=== PATIENT | female | born 1960 | race Caucasian/White ===

== ENCOUNTER 2020-08-19 20:51 | Inpatient (IN) | payer OTHER ==
[~2020-08-19] VITALS: Ht 162.6 cm; Wt 116.0 kg
[~2020-08-19 20:51] MED LIST: AUGMENTIN 875-1 EACH PO; AZITHROMYCIN250 MG PO; BACTRIM DS TAB1 EACH PO; BUMEX1 MG PO; CEFDINIR300 MG PO; CEFTRIAXONE1 GM IV; CRESTOR5 MG PO; CYMBALTA 30MG C30 MG PO; DIFLUCAN150 MG PO; DULERA 200 MCG8.8 GM INH; DUONEB 2.5-0.5M1 AMP INH; ELAVIL25 MG PO; HYDRALAZINE25 MG PO; KEFLEX250 MG PO; KEFLEX500 MG PO; METOLAZONE 5MG T5 MG PO; MOBIC7.5 MG PO; MUCINEX 600MG600 MG PO; NEURONTIN300 MG PO; NORCO 7.5-3251 EACH PO; NYSTATIN 30GM C30 GM TOP; TOPROL XL 50 MG50 MG PO; TRAMADOL HCL50 MG PO; ZOFRAN4 M1 PO
[2020-08-19 21:25] LABS: BASOPHIL 0.2 % (0-2); EOSINOPHIL 1.1 % (0-5); HGB 10.6 g/dl (12.5-16.0); MCH 29.1 pg (25.0-31.0); MCHC 29.4 g/dL (32.0-36.0); MCV 98.9 fL (78.0-100.0); MONOCYTE 5.1 % (0-12); MPV 8.9 fL (6.0-9.5); NEUTROPHIL 87.2 % (41-80); NRBC 0; PLT 347 K/uL (150-400); RBC 3.64 M/uL (4.20-5.40); RDW 13.4 % (11.5-14.0); WBC 18.1 K/uL (4.0-10.5)
[2020-08-19 21:56] LABS: PRO-BNP 388 pg/mL (<125)
[2020-08-19 22:02] LABS: ALBUMIN 3.6 g/dL (3.4-5.0); BILIRUBIN - TOTAL 0.6 mg/dL (0.2-1.0); C-REACTIVE PROTEIN 4.7 mg/dL (<=0.90); CREATININE 0.53 mg/dL (0.51-0.95); GLOBULIN (CALCULATION) 4.7 g/dL; POTASSIUM 4.3 mmol/L (3.5-5.1); TOTAL PROTEIN 8.3 g/dL (6.4-8.2)
[2020-08-19 22:11] LABS: BILIRUBIN NEGATIVE (NEGATIVE); BLOOD NEGATIVE Ery/uL (NEGATIVE); CLARITY CLEAR (CLEAR); COLOR YELLOW (YELLOW); GLUCOSE (U) NORMAL (NORMAL); LEUKOCYTES NEGATIVE Leu/uL (NEGATIVE); NITRITE NEGATIVE (NEGATIVE); PROTEIN NEGATIVE (NEGATIVE); UROBILINOGEN 0.2 mg/dL (0.2-1.0)
[2020-08-20] MEDS ORDERED: SINGULAIR10 MG PO (03:56)
[2020-08-20] MEDS ORDERED: LASIX40 MG PO (03:57)
[2020-08-20] MEDS ORDERED: K-DUR20 MEQ PO (03:59)
[2020-08-20] MEDS ORDERED: NORCO 5-325 TA1 EACH PO (04:01)
[2020-08-20] MEDS ORDERED: ALDACTONE25 MG PO (04:02)
--- NOTE | 2020-08-20 10:24 | NUR ---
REPORTS SHE IS ASSIST WITH CARE SHE HAS HOME 02 AND A WALKER AT HOME. LIVES WITH SPOUSE; PLEASE ADVISE OF DISCHARGE NEEDS;
--- NOTE | 2020-08-20 17:49 | NUR ---
08/20/20 Ms. Jacobo has requested a rw and 3in1. She has 02 at 2 L, s. chair and wc. Ms. Jacobo is current with [facility] and wishes to continu with there services. A referral was made to [facility] via [facility].
[2020-08-20] MEDS ORDERED: CLOBETASOL 0.0560 GM TOP (20:00)
[2020-08-20] MEDS ORDERED: MOBIC7.5 MG PO (20:00)
[2020-08-20] MEDS ORDERED: DOXYCYCLINE MO100 M1 PO (20:01)
[2020-08-20] MEDS ORDERED: 24HOUR ALLERGY10 MG PO (20:07)
[2020-08-20] MEDS ORDERED: MIRAPEX0.25 MG PO (20:08)
[2020-08-20] MEDS ORDERED: PROAIR HFA8.5 GM INH (20:09)
[2020-08-20] MEDS ORDERED: IMITREX50 MG PO (20:09)
[2020-08-21 03:56] LABS: BASOPHIL 0.1 % (0-2); EOSINOPHIL 0 % (0-5); HCT 33.4 % (37.0-47.0); HGB 9.8 g/dl (12.5-16.0); LYMPHOCYTE 7.5 % (15-48); MCH 29.2 pg (25.0-31.0); MCHC 29.3 g/dL (32.0-36.0); MCV 99.4 fL (78.0-100.0); MONOCYTE 3.2 % (0-12); MPV 9.5 fL (6.0-9.5); NEUTROPHIL 88.6 % (41-80); NRBC 0; PLT 324 K/uL (150-400); RBC 3.36 M/uL (4.20-5.40); RDW 13.7 % (11.5-14.0); WBC 10.7 K/uL (4.0-10.5)
[2020-08-21 07:33] LABS: ALBUMIN 3.1 g/dL (3.4-5.0); BILIRUBIN - TOTAL 0.5 mg/dL (0.2-1.0); BUN/CREAT RATIO (CALC) 33.9 RATIO; CREATININE 0.62 mg/dL (0.51-0.95); GLOBULIN (CALCULATION) 4.4 g/dL; POTASSIUM 4.6 mmol/L (3.5-5.1); TOTAL PROTEIN 7.5 g/dL (6.4-8.2)
[2020-08-22] MEDS ORDERED: AZITHROMYCIN250 MG PO (09:13)
[2020-08-22] MEDS ORDERED: DUONEB 2.5-0.5M1 AMP NEB (09:13)
[2020-08-22] MEDS ORDERED: PREDNISONE 20MG20 MG PO (09:13)
[2020-08-22] MEDS ORDERED: ADVAIR HFA 230-28 GM INH (09:52)
[2020-08-22] MEDS ORDERED: SPIRIVA RESPIMAT4 G1 INH (09:53)
== END 2020-08-22 11:20 | disposition home or self-care (01) | DRG 291 ==
LOC: FER 20:51 → FTCU 08-20 01:47
PROVIDERS: Emergency Medicine Emergency Medical Services; Nurse Practitioner; ADMIT Internal Medicine
DX: I11.0 Hypertensive heart disease with heart failure (principal); J96.01 Acute respiratory failure with hypoxia; J44.1 Chronic obstructive pulmonary disease with (acute) exacerbation; L97.819 Non-pressure chronic ulcer of other part of right lower leg with unspecified severity; I50.33 Acute on chronic diastolic (congestive) heart failure; Z20.822 Contact with and (suspected) exposure to COVID-19; I83.018 Varicose veins of right lower extremity with ulcer other part of lower leg; I83.028 Varicose veins of left lower extremity with ulcer other part of lower leg; E66.01 Morbid (severe) obesity due to excess calories; G89.29 Other chronic pain; G47.33 Obstructive sleep apnea (adult) (pediatric); Z99.81 Dependence on supplemental oxygen; Z87.891 Personal history of nicotine dependence; Z79.899 Other long term (current) drug therapy
CPT/HCPCS: 36415; 71045; 71275; 80053; 81003; 82728; 83605; 83615; 83880; 84145; 84484; 85025; 85379; 86140; 87040; 87076; 87088; 87186; 93005; 94640; 94664; 96365; 96375; 97116; 97163; 97530-GP; J1650; J1940; J2270; J2405; J2543; J2930; J3370; J7050; Q9967; U0002

== ENCOUNTER 2020-11-15 13:53 | Inpatient (IN) | payer OTHER ==
[~2020-11-15 13:53] MED LIST changes: +24HOUR ALLERGY10 MG PO; +ADVAIR HFA 230-28 GM INH; +ALDACTONE25 MG PO; +CLOBETASOL 0.0560 GM TOP; +DOXYCYCLINE MO100 M1 PO; +DUONEB 2.5-0.5M1 AMP NEB; +IMITREX50 MG PO; +K-DUR20 MEQ PO; +LASIX40 MG PO; +MIRAPEX0.25 MG PO; +NORCO 5-325 TA1 EACH PO; +PREDNISONE 20MG20 MG PO; +PROAIR HFA8.5 GM INH; +SINGULAIR10 MG PO; +SPIRIVA RESPIMAT4 G1 INH
[2020-11-15 15:28] LABS: BASOPHIL 0.1 % (0-2); EOSINOPHIL 2.7 % (0-5); HCT 35.1 % (37.0-47.0); HGB 10.1 g/dl (12.5-16.0); LYMPHOCYTE 10.7 % (15-48); MCH 28.3 pg (25.0-31.0); MCHC 28.8 g/dL (32.0-36.0); MCV 98.3 fL (78.0-100.0); MONOCYTE 5.7 % (0-12); MPV 9.7 fL (6.0-9.5); NEUTROPHIL 80.4 % (41-80); PLT 349 K/uL (150-400); RBC 3.57 M/uL (4.20-5.40); RDW 15.4 % (11.5-14.0); WBC 10.5 K/uL (4.0-10.5)
[2020-11-15 15:38] LABS: NRBC 0
[2020-11-15 15:40] LABS: INR 1.03 (0.9-1.2); PROTHROMBIN TIME 12.8 SECONDS (11.4-13.6); PTT 32.7 SECONDS (22.2-34.7)
[2020-11-15 15:56] LABS: PRO-BNP 221 pg/mL (<125)
[2020-11-15 16:00] LABS: ALBUMIN 3.5 g/dL (3.4-5.0); BILIRUBIN - TOTAL 0.3 mg/dL (0.2-1.0); BUN/CREAT RATIO (CALC) 27.4 RATIO; C-REACTIVE PROTEIN 4.6 mg/dL (<=0.90); CREATININE 0.62 mg/dL (0.51-0.95); GLOBULIN (CALCULATION) 4.6 g/dL; MAGNESIUM 2.1 mg/dL (1.8-2.4); POTASSIUM 4.9 mmol/L (3.5-5.1); TOTAL PROTEIN 8.1 g/dL (6.4-8.2)
[2020-11-15 16:04] LABS: BILIRUBIN NEGATIVE (NEGATIVE); BLOOD NEGATIVE Ery/uL (NEGATIVE); CLARITY CLEAR (CLEAR); COLOR YELLOW (YELLOW); GLUCOSE (U) NORMAL (NORMAL); LEUKOCYTES NEGATIVE Leu/uL (NEGATIVE); NITRITE NEGATIVE (NEGATIVE); PROTEIN NEGATIVE (NEGATIVE); SPECIFIC GRAVITY >=1.030 (1.001-1.030); UROBILINOGEN 0.2 mg/dL (0.2-1.0); pH 5.5 (5.0-9.0)
[2020-11-16] MEDS ORDERED: K-TAB ER20 MEQ PO (01:16)
[2020-11-16] MEDS ORDERED: ALDACTONE25 MG PO (01:19)
[2020-11-16] MEDS ORDERED: PRINIVIL20 MG PO ×2 (01:20→01:21)
[2020-11-16] MEDS ORDERED: HYDRALAZINE25 MG PO (01:20)
[2020-11-16] MEDS ORDERED: CYMBALTA 30MG C30 MG PO (01:21)
[2020-11-16] MEDS ORDERED: TOPROL XL200 MG PO (01:22)
[2020-11-16] MEDS ORDERED: MIRAPEX0.25 MG PO (01:22)
[2020-11-16] MEDS ORDERED: LASIX80 MG PO (01:23)
[2020-11-16] MEDS ORDERED: CRESTOR5 MG PO (01:23)
[2020-11-16] MEDS ORDERED: GABAPENTIN300 MG PO (01:23)
[2020-11-16] MEDS ORDERED: HYDROCODON-ACE1 EAC2 PO (01:24)
[2020-11-16] MEDS ORDERED: PROAIR HFA8.5 GM INH (01:25)
[2020-11-16] MEDS ORDERED: SPIRIVA RESPIMAT4 G1 INH (01:25)
[2020-11-16] MEDS ORDERED: VIBRAMYCIN100 MG PO (01:26)
[2020-11-16] MEDS ORDERED: IMITREX50 MG PO (01:26)
[2020-11-16] MEDS ORDERED: DIFLUCAN150 MG PO (01:27)
[2020-11-16 05:46] LABS: BASOPHIL 0.1 % (0-2); EOSINOPHIL 0 % (0-5); HCT 33.1 % (37.0-47.0); LYMPHOCYTE 8.9 % (15-48); MCH 27.6 pg (25.0-31.0); MCHC 28.7 g/dL (32.0-36.0); MCV 96.2 fL (78.0-100.0); MONOCYTE 0.9 % (0-12); MPV 9.1 fL (6.0-9.5); NEUTROPHIL 89.7 % (41-80); NRBC 0; PLT 311 K/uL (150-400); RBC 3.44 M/uL (4.20-5.40); RDW 14.9 % (11.5-14.0); WBC 9.8 K/uL (4.0-10.5)
[2020-11-16 06:08] LABS: HGB 9.5 g/dl (12.5-16.0)
[2020-11-16 06:09] LABS: BILIRUBIN - TOTAL 0.4 mg/dL (0.2-1.0); BUN/CREAT RATIO (CALC) 30.6 RATIO; CREATININE 0.49 mg/dL (0.51-0.95); GLOBULIN (CALCULATION) 4.4 g/dL; POTASSIUM 4.5 mmol/L (3.5-5.1); TOTAL PROTEIN 7.4 g/dL (6.4-8.2)
--- NOTE | 2020-11-16 14:29 | NUR ---
11/16/20 Hiren Jacobo shares a home with her 37 y/o son and spouse. She has home 02, rw, 3in1, and s.chair. Dr. Marbella Mccullough is ordering a wc per Ms. Jacobo. [facility] is current and Ms. Jacobo wishes to continue the services. - Please notify [facility] at [phone] if patient is discharged over the weekend.
--- NOTE | 2020-11-16 23:25 | NUR ---
PATIENT PLACED ON CPAP 12, PATIENT UNDERSTOOD THE MD WANTED HER TO WEAR FOR SLEEP TONIGHT. PATIENT PLACED ON 2311. BREATHING TX GIVEN INLINE. PATIENT TAKEN BACK OFF AFTER TX. STATED SHE FEELS LIKE SHE CANT GET HER BREATH AND FEELING CLAUSTRAPHOBIC. ATTEMPT WAS MADE WITH MEDIUM MASK, CPAP 12, 50% TO MAINTAIN SAT OF 92%. PATIENT PLACED BACK ON 4L NC
[2020-11-18 06:19] LABS: BASOPHIL 0.1 % (0-2); EOSINOPHIL 0 % (0-5); HCT 32.3 % (37.0-47.0); HGB 9.8 g/dl (12.5-16.0); LYMPHOCYTE 11.1 % (15-48); MCH 27.7 pg (25.0-31.0); MCHC 30.3 g/dL (32.0-36.0); MONOCYTE 7.3 % (0-12); MPV 9.4 fL (6.0-9.5); NRBC 0; PLT 359 K/uL (150-400); RBC 3.54 M/uL (4.20-5.40); RDW 15.6 % (11.5-14.0); WBC 7.4 K/uL (4.0-10.5)
[2020-11-18 06:20] LABS: MCV 91.2 fL (78.0-100.0)
[2020-11-18 06:41] LABS: BUN/CREAT RATIO (CALC) 32.8 RATIO; CREATININE 0.58 mg/dL (0.51-0.95); POTASSIUM 3.6 mmol/L (3.5-5.1)
[2020-11-18] MEDS ORDERED: DOXYCYCLINE MO100 MG PO (08:52)
[2020-11-18] MEDS ORDERED: ISOSORBIDE MONO30 MG PO (08:52)
[2020-11-18] MEDS ORDERED: PREDNISONE 20MG20 MG PO (08:55)
[2020-11-18] MEDS ORDERED: DUONEB 2.5-0.5M1 AMP INH (08:55)
[2020-11-18] MEDS ORDERED: ADVAIR HFA 230-28 GM INH (08:57)
[2020-11-18] MEDS ORDERED: DULERA 200 MCG8.8 GM INH (09:42)
== END 2020-11-18 12:30 | disposition home health service (06) | DRG 191 ==
LOC: FER 13:53 → FICU 18:38 → FTCU 11-17 15:50
PROVIDERS: Allergy & Immunology Allergy; Emergency Medicine; Nurse Practitioner; ADMIT Internal Medicine
PROC: 5A09457 Assistance with Respiratory Ventilation, 24-96 Consecutive Hours, Continuous Positive Airway Pressure (ICD-10-PCS; principal; 2020-11-15)
DX: J43.2 Centrilobular emphysema (principal); E66.2 Morbid (severe) obesity with alveolar hypoventilation; J96.11 Chronic respiratory failure with hypoxia; J96.12 Chronic respiratory failure with hypercapnia; Z68.42 Body mass index [BMI] 45.0-49.9, adult; Z20.822 Contact with and (suspected) exposure to COVID-19; I11.0 Hypertensive heart disease with heart failure; I50.9 Heart failure, unspecified; G25.81 Restless legs syndrome; G43.909 Migraine, unspecified, not intractable, without status migrainosus; G89.29 Other chronic pain; F40.240 Claustrophobia; Z99.81 Dependence on supplemental oxygen; Z87.891 Personal history of nicotine dependence; Z98.51 Tubal ligation status; Z88.8 Allergy status to other drugs, medicaments and biological substances
CPT/HCPCS: 36415; 36600; 71045; 71250; 80048; 80053; 81003; 82728; 82803; 83605; 83615; 83735; 83880; 84145; 84443; 84484; 85025; 85610; 85730; 86140; 87040; 93005; 94010; 94640; 94660; 94664; J0360; J1650; J2270; J2543; J2930; U0002

== ENCOUNTER 2020-12-03 22:08 | Inpatient (IN) | payer OTHER ==
[~2020-12-03] VITALS: Ht 162.6 cm; Wt 118.0 kg
[~2020-12-03 22:08] MED LIST changes: +DOXYCYCLINE MO100 MG PO; +GABAPENTIN300 MG PO; +HYDROCODON-ACE1 EAC2 PO; +ISOSORBIDE MONO30 MG PO; +K-TAB ER20 MEQ PO; +LASIX80 MG PO; +PRINIVIL20 MG PO; +TOPROL XL200 MG PO; +VIBRAMYCIN100 MG PO
[2020-12-03 22:46] LABS: BILIRUBIN NEGATIVE (NEGATIVE); BLOOD NEGATIVE Ery/uL (NEGATIVE); CLARITY CLEAR (CLEAR); COLOR YELLOW (YELLOW); GLUCOSE (U) NORMAL (NORMAL); LEUKOCYTES NEGATIVE Leu/uL (NEGATIVE); NITRITE NEGATIVE (NEGATIVE); PROTEIN NEGATIVE (NEGATIVE); SPECIFIC GRAVITY >=1.030 (1.001-1.030); UROBILINOGEN 0.2 mg/dL (0.2-1.0); pH 5.5 (5.0-9.0)
[2020-12-03 22:46] LABS: BASOPHIL 0.3 % (0-2); EOSINOPHIL 3.1 % (0-5); HCT 35.9 % (37.0-47.0); HGB 10.5 g/dl (12.5-16.0); MCH 28.7 pg (25.0-31.0); MCHC 29.2 g/dL (32.0-36.0); MCV 98.1 fL (78.0-100.0); MONOCYTE 7.1 % (0-12); MPV 9.1 fL (6.0-9.5); NEUTROPHIL 77.9 % (41-80); NRBC 0; PLT 321 K/uL (150-400); RBC 3.66 M/uL (4.20-5.40); RDW 14.9 % (11.5-14.0); WBC 10.8 K/uL (4.0-10.5)
[2020-12-03 22:58] LABS: ALBUMIN 3.2 g/dL (3.4-5.0); BILIRUBIN - TOTAL 0.3 mg/dL (0.2-1.0); BUN/CREAT RATIO (CALC) 23.2 RATIO; CREATININE 0.69 mg/dL (0.51-0.95); GLOBULIN (CALCULATION) 4.7 g/dL; POTASSIUM 5.4 mmol/L (3.5-5.1); TOTAL PROTEIN 7.9 g/dL (6.4-8.2)
[2020-12-03 23:00] LABS: LACTIC ACID 1.2 mmol/L (0.4-1.9)
[2020-12-03 23:53] LABS: PRO-BNP 197 pg/mL (<125)
[2020-12-04] MEDS ORDERED: KLOR-CON 88 MEQ PO (01:12)
[2020-12-04] MEDS ORDERED: HYDRALAZINE25 MG PO (01:12)
[2020-12-04] MEDS ORDERED: ALDACTONE25 MG PO (01:12)
[2020-12-04] MEDS ORDERED: CYMBALTA 30MG C30 MG PO (01:13)
[2020-12-04] MEDS ORDERED: PRINIVIL20 MG PO (01:13)
[2020-12-04] MEDS ORDERED: TOPROL XL100 MG PO (01:14)
[2020-12-04] MEDS ORDERED: NEURONTIN300 MG PO (01:16)
[2020-12-04] MEDS ORDERED: CRESTOR5 MG PO (01:16)
[2020-12-04] MEDS ORDERED: LASIX80 MG PO (01:16)
[2020-12-04] MEDS ORDERED: MIRAPEX0.25 MG PO (01:16)
[2020-12-04] MEDS ORDERED: HYDROCODON-ACE1 EAC2 PO (01:17)
[2020-12-04] MEDS ORDERED: SPIRIVA RESPIMAT4 G1 INH (01:17)
[2020-12-04] MEDS ORDERED: PROAIR HFA8.5 GM INH (01:18)
[2020-12-04 01:33] LABS: CORONAVIRUS 2019 SARS-COV-2 NEGATIVE (NEGATIVE); INFLUENZA A NAA NEGATIVE (NEGATIVE)
[2020-12-04 04:14] LABS: BASOPHIL 0.1 % (0-2); EOSINOPHIL 0.4 % (0-5); HCT 33.9 % (37.0-47.0); HGB 9.9 g/dl (12.5-16.0); LYMPHOCYTE 6.8 % (15-48); MCH 28.3 pg (25.0-31.0); MCHC 29.2 g/dL (32.0-36.0); MCV 96.9 fL (78.0-100.0); MONOCYTE 1.6 % (0-12); MPV 9.4 fL (6.0-9.5); NRBC 0; PLT 307 K/uL (150-400); RDW 14.8 % (11.5-14.0); WBC 10.5 K/uL (4.0-10.5)
[2020-12-04 04:22] LABS: NEUTROPHIL 90.6 % (41-80)
[2020-12-04 04:26] LABS: BUN/CREAT RATIO (CALC) 22.8 RATIO; CREATININE 0.57 mg/dL (0.51-0.95); POTASSIUM 4.7 mmol/L (3.5-5.1)
[2020-12-05 04:48] LABS: BUN/CREAT RATIO (CALC) 21.2 RATIO; CREATININE 0.66 mg/dL (0.51-0.95); POTASSIUM 3.6 mmol/L (3.5-5.1)
[2020-12-05 05:01] LABS: BASOPHIL 0.1 % (0-2); EOSINOPHIL 0 % (0-5); HCT 33.8 % (37.0-47.0); HGB 10.2 g/dl (12.5-16.0); LYMPHOCYTE 10.1 % (15-48); MCH 28.1 pg (25.0-31.0); MCHC 30.2 g/dL (32.0-36.0); MCV 93.1 fL (78.0-100.0); MONOCYTE 2.2 % (0-12); MPV 9.4 fL (6.0-9.5); NRBC 0; PLT 329 K/uL (150-400); RBC 3.63 M/uL (4.20-5.40); RDW 14.8 % (11.5-14.0); WBC 7.9 K/uL (4.0-10.5)
--- NOTE | 2020-12-05 15:03 | NUR ---
12/05/20 Ms. Jacobo inquired about changing 02 companies. She is currently with [facility] and would like to change the services to [facility]. [facility] reports; patient is unable to change companies if the 02 has been provided greater than 2 years. A person is unable to change until they have been with the current company 5 years. The paerson may change companies after 5 years if they have not been recertified. This information was given to Ms. Jacobo.
[2020-12-06 06:34] LABS: BASOPHIL 0 % (0-2); EOSINOPHIL 0 % (0-5); HCT 37.3 % (37.0-47.0); HGB 11.4 g/dl (12.5-16.0); LYMPHOCYTE 9.3 % (15-48); MCH 27.7 pg (25.0-31.0); MCHC 30.6 g/dL (32.0-36.0); MCV 90.8 fL (78.0-100.0); MONOCYTE 3.5 % (0-12); MPV 9.2 fL (6.0-9.5); NEUTROPHIL 86.4 % (41-80); NRBC 0; PLT 395 K/uL (150-400); RBC 4.11 M/uL (4.20-5.40); RDW 15.3 % (11.5-14.0); WBC 9.1 K/uL (4.0-10.5)
[2020-12-06 06:47] LABS: BUN/CREAT RATIO (CALC) 32.4 RATIO; CREATININE 0.68 mg/dL (0.51-0.95); MAGNESIUM 2.2 mg/dL (1.8-2.4); POTASSIUM 3.7 mmol/L (3.5-5.1)
[2020-12-06] MEDS ORDERED: PREDNISONE 20MG20 MG PO (08:20)
--- NOTE | 2020-12-06 10:09 | NUR ---
0800- [facility] DC AT 0800, PT VOIDED 200CC 1000- PT DC HOME VIA WHEELCHAIR, PT SHOWERED BEFORE DC, DAUGHTER AT BEDSIDE, IV REOVED, TELE REMOVED, PULSE OX REMOVED. PT ON 4 L O2 NC AT THIS TIME SAT IS 94%
--- NOTE | 2020-12-06 10:23 | NUR ---
BLE WRAPPED WITH [facility] BEFORE LEAVING HOSPITAL BY DAUGHTER
--- NOTE | 2020-12-06 15:10 | NUR ---
12/06/20 [facility] was notified of patient's discharge.
== END 2020-12-06 11:07 | disposition home health service (06) | DRG 291 ==
LOC: FER 22:08 → FTCU 12-04 00:05
PROVIDERS: Emergency Medicine; Internal Medicine; Nurse Practitioner; ADMIT Internal Medicine
PROC: 5A1945Z Respiratory Ventilation, 24-96 Consecutive Hours (ICD-10-PCS; principal; 2020-12-04)
DX: I11.0 Hypertensive heart disease with heart failure (principal); J96.22 Acute and chronic respiratory failure with hypercapnia; J96.21 Acute and chronic respiratory failure with hypoxia; J44.1 Chronic obstructive pulmonary disease with (acute) exacerbation; Z68.41 Body mass index [BMI] 40.0-44.9, adult; I50.33 Acute on chronic diastolic (congestive) heart failure; Z20.822 Contact with and (suspected) exposure to COVID-19; G89.4 Chronic pain syndrome; I87.8 Other specified disorders of veins; E66.01 Morbid (severe) obesity due to excess calories; G47.30 Sleep apnea, unspecified; F17.290 Nicotine dependence, other tobacco product, uncomplicated; G25.81 Restless legs syndrome; Z88.8 Allergy status to other drugs, medicaments and biological substances; Z79.899 Other long term (current) drug therapy; Z99.81 Dependence on supplemental oxygen; Z98.51 Tubal ligation status
CPT/HCPCS: 36415; 36600; 70450; 71045; 80048; 80053; 81003; 82803; 83605; 83735; 83880; 84145; 84484; 85025; 87040; 87088; 93005; 94640; 94660; 96368; J1650; J1940; J2543; J2930; J3370; J7050; U0002

== ENCOUNTER 2021-01-29 11:57 | Inpatient (IN) | payer OTHER ==
[~2021-01-29] VITALS: Ht 152.4 cm; Wt 117.7 kg
[~2021-01-29 11:57] MED LIST changes: +KLOR-CON 88 MEQ PO; +TOPROL XL100 MG PO
[2021-01-29 13:53] LABS: BASOPHIL 0.4 % (0-2); EOSINOPHIL 4.1 % (0-5); HCT 35.5 % (37.0-47.0); LYMPHOCYTE 15.3 % (15-48); MCH 28.2 pg (25.0-31.0); MCHC 28.2 g/dL (32.0-36.0); MCV 100.3 fL (78.0-100.0); MONOCYTE 9.4 % (0-12); MPV 9.1 fL (6.0-9.5); NEUTROPHIL 70.6 % (41-80); NRBC 0; PLT 405 K/uL (150-400); RBC 3.54 M/uL (4.20-5.40); RDW 14.7 % (11.5-14.0); WBC 8.2 K/uL (4.0-10.5)
[2021-01-29 14:02] LABS: BUN/CREAT RATIO (CALC) 14.1 RATIO; CREATININE 0.71 mg/dL (0.51-0.95)
[2021-01-29 16:19] LABS: CORONAVIRUS 2019 SARS-COV-2 NEGATIVE (NEGATIVE); INFLUENZA A NAA NEGATIVE (NEGATIVE)
--- NOTE | 2021-01-29 18:50 | NUR ---
PT ADMITTED TO FLOOR HAS DSG TO JANAY LEGS BELOW KNEES. SAID HE JUST WRAPPED LEG BEFORE COMING TO HOSPITAL. WENT HOME TO GET MORE DSG. PT DIDN'T WANT DRESSING TO BE TAKEN OFF UNTIL COME BACK WITH DSG. DR. JOYCE PUT IN FOR WOUND EVAL.
[2021-01-30 06:28] LABS: BASOPHIL 0 % (0-2); EOSINOPHIL 0 % (0-5); HCT 34.9 % (37.0-47.0); HGB 9.5 g/dl (12.5-16.0); LYMPHOCYTE 10.9 % (15-48); MCH 28.2 pg (25.0-31.0); MCHC 27.2 g/dL (32.0-36.0); MCV 103.6 fL (78.0-100.0); MONOCYTE 1.5 % (0-12); NEUTROPHIL 86.9 % (41-80); NRBC 0; PLT 296 K/uL (150-400); RBC 3.37 M/uL (4.20-5.40); RDW 14.8 % (11.5-14.0); WBC 6.8 K/uL (4.0-10.5)
[2021-01-30 06:52] LABS: BUN/CREAT RATIO (CALC) 27.1 RATIO; CREATININE 0.59 mg/dL (0.51-0.95); POTASSIUM 4.9 mmol/L (3.5-5.1)
--- NOTE | 2021-01-30 13:22 | NUR ---
PT. RESIDES WITH HER SPOUSE. SHE HAS HOME O2, ROLLING WALKER, HANDICAP KASH. SHE GETS HER O2 FROM [facility] AND SHE IS CURRENT WITH [facility].
[2021-01-31 06:03] LABS: CREATININE 0.53 mg/dL (0.51-0.95); POTASSIUM 4.9 mmol/L (3.5-5.1)
[2021-01-31 07:35] LABS: BASOPHIL 0 % (0-2); EOSINOPHIL 0 % (0-5); HCT 32.7 % (37.0-47.0); HGB 9.5 g/dl (12.5-16.0); LYMPHOCYTE 11.3 % (15-48); MCH 28.2 pg (25.0-31.0); MCHC 29.1 g/dL (32.0-36.0); MONOCYTE 4.6 % (0-12); MPV 9.3 fL (6.0-9.5); NEUTROPHIL 83.3 % (41-80); NRBC 0; PLT 370 K/uL (150-400); RBC 3.37 M/uL (4.20-5.40); RDW 14.8 % (11.5-14.0)
--- NOTE | 2021-01-31 13:39 | NUR ---
NOTIFIED TYRON CHRISTIANSEN, LIASION WITH [facility], THAT PT. MAY DC HOME THIS DATE OR TOMORROW. REFERRAL PUT IN THROUGH [facility].
[2021-01-31] MEDS ORDERED: VIBRAMYCIN100 MG PO (14:55)
[2021-01-31] MEDS ORDERED: PREDNISONE 20MG20 MG PO (14:55)
--- NOTE | 2021-01-31 15:08 | NUR ---
01/31/21 Ms. Jacobo lives at home with her spouse. She is current with [facility] . Patient wishes to continue services and [facility] was notified of discharge. Report given to MS Katya RN. - Patient has home 02, rw, 3in1, s. chair and bars in the showere.
== END 2021-01-31 15:24 | disposition home health service (06) | DRG 291 ==
LOC: FER 11:57 → FMS 15:54
PROVIDERS: Nurse Practitioner Family; ADMIT Internal Medicine
DX: I11.0 Hypertensive heart disease with heart failure (principal); J18.9 Pneumonia, unspecified organism; J96.21 Acute and chronic respiratory failure with hypoxia; J96.22 Acute and chronic respiratory failure with hypercapnia; J44.1 Chronic obstructive pulmonary disease with (acute) exacerbation; J44.0 Chronic obstructive pulmonary disease with (acute) lower respiratory infection; I50.33 Acute on chronic diastolic (congestive) heart failure; Z20.822 Contact with and (suspected) exposure to COVID-19; G47.33 Obstructive sleep apnea (adult) (pediatric); I87.8 Other specified disorders of veins; F17.290 Nicotine dependence, other tobacco product, uncomplicated; E66.9 Obesity, unspecified; G89.29 Other chronic pain; G25.81 Restless legs syndrome; Z99.81 Dependence on supplemental oxygen; Z98.51 Tubal ligation status; Z79.899 Other long term (current) drug therapy
CPT/HCPCS: 36415; 71045; 80048; 83605; 83880; 84145; 85025; 87040; 93005; 94010; 94640; 94664; 94762; J0456; J0696; J1100; J1650; J1940; J2920; J7040; J7050; U0002

== ENCOUNTER 2021-02-09 12:44 | Emergency (ER) | payer OTHER ==
[2021-02-09 14:01] LABS: BASOPHIL 0.2 % (0-2); EOSINOPHIL 2.1 % (0-5); HCT 35.5 % (37.0-47.0); HGB 10.6 g/dl (12.5-16.0); LYMPHOCYTE 8.8 % (15-48); MCH 28.2 pg (25.0-31.0); MCHC 29.9 g/dL (32.0-36.0); MCV 94.4 fL (78.0-100.0); MONOCYTE 8.8 % (0-12); MPV 9.3 fL (6.0-9.5); NEUTROPHIL 79.5 % (41-80); NRBC 0; PLT 339 K/uL (150-400); RBC 3.76 M/uL (4.20-5.40); RDW 15.8 % (11.5-14.0); WBC 12.6 K/uL (4.0-10.5)
[2021-02-09 14:16] LABS: ALBUMIN 3.5 g/dL (3.4-5.0); BILIRUBIN - TOTAL 0.5 mg/dL (0.2-1.0); BUN/CREAT RATIO (CALC) 32.7 RATIO; CREATININE 0.52 mg/dL (0.51-0.95); GLOBULIN (CALCULATION) 4.2 g/dL; POTASSIUM 4.6 mmol/L (3.5-5.1); TOTAL PROTEIN 7.7 g/dL (6.4-8.2)
[2021-02-09 14:21] LABS: PRO-BNP 153 pg/mL (<125)
[2021-02-09] MEDS ORDERED: PREDNISONE 20MG20 MG PO (16:35)
== END 2021-02-09 17:15 | disposition home or self-care (01) ==
LOC: FER 12:44
PROVIDERS: Emergency Medicine
DX: J44.1 Chronic obstructive pulmonary disease with (acute) exacerbation (principal); R19.7 Diarrhea, unspecified; I10 Essential (primary) hypertension; F17.290 Nicotine dependence, other tobacco product, uncomplicated; Z20.822 Contact with and (suspected) exposure to COVID-19
CPT/HCPCS: 36415; 36600; 71045; 74018; 80053; 82803; 83605; 83880; 84145; 84484; 85025; 87040; 93005; J2930; U0002

== ENCOUNTER 2021-04-11 04:42 | Inpatient (IN) | payer OTHER ==
[~2021-04-11] VITALS: Ht 162.6 cm; Wt 115.0 kg
[2021-04-11 05:12] LABS: BASOPHIL 0.2 % (0-2); HGB 10.5 g/dl (12.5-16.0); LYMPHOCYTE 8.1 % (15-48); MCH 27.6 pg (25.0-31.0); MCHC 28.4 g/dL (32.0-36.0); MCV 97.4 fL (78.0-100.0); MONOCYTE 9.4 % (0-12); MPV 8.6 fL (6.0-9.5); NEUTROPHIL 80.9 % (41-80); NRBC 0; PLT 393 K/uL (150-400); RDW 14.1 % (11.5-14.0); WBC 10.5 K/uL (4.0-10.5)
[2021-04-11 05:41] LABS: ALBUMIN 2.9 g/dL (3.4-5.0); BILIRUBIN - TOTAL 0.4 mg/dL (0.2-1.0); BUN/CREAT RATIO (CALC) 24.3 RATIO; CREATININE 0.74 mg/dL (0.51-0.95); GLOBULIN (CALCULATION) 5.3 g/dL; POTASSIUM 4.6 mmol/L (3.5-5.1); TOTAL PROTEIN 8.2 g/dL (6.4-8.2)
[2021-04-11 05:48] LABS: LACTIC ACID 2.5 mmol/L (0.4-1.9)
[2021-04-11 09:55] LABS: BILIRUBIN NEGATIVE (NEGATIVE); BLOOD NEGATIVE Ery/uL (NEGATIVE); CLARITY CLEAR (CLEAR); COLOR YELLOW (YELLOW); GLUCOSE (U) NORMAL (NORMAL); LEUKOCYTES NEGATIVE Leu/uL (NEGATIVE); NITRITE NEGATIVE (NEGATIVE); PROTEIN NEGATIVE (NEGATIVE); SPECIFIC GRAVITY 1.015 (1.001-1.030); UROBILINOGEN 0.2 mg/dL (0.2-1.0)
[2021-04-12 06:40] LABS: BASOPHIL 0.1 % (0-2); EOSINOPHIL 0 % (0-5); HCT 31.7 % (37.0-47.0); HGB 9.3 g/dl (12.5-16.0); LYMPHOCYTE 6.7 % (15-48); MCH 27.8 pg (25.0-31.0); MCHC 29.3 g/dL (32.0-36.0); MCV 94.9 fL (78.0-100.0); MONOCYTE 8.2 % (0-12); MPV 8.8 fL (6.0-9.5); NEUTROPHIL 84.4 % (41-80); NRBC 0; PLT 375 K/uL (150-400); RBC 3.34 M/uL (4.20-5.40); RDW 14.4 % (11.5-14.0); WBC 11.6 K/uL (4.0-10.5)
[2021-04-12 07:28] LABS: BUN/CREAT RATIO (CALC) 33.3 RATIO; CREATININE 0.48 mg/dL (0.51-0.95); POTASSIUM 3.6 mmol/L (3.5-5.1)
[2021-04-12] MEDS ORDERED: BACTRIM DS TAB1 EACH PO (14:48)
--- NOTE | 2021-04-12 16:16 | NUR ---
04/12/21 Ms. Jacobo ;jose at home with her spouse. She is followed by [facility] . She has 02, rw, 3in1, s. chair and bars in the bathroom. [facility]. [phone] if patient discharges over the weekend.
== END 2021-04-12 17:00 | disposition home or self-care (01) | DRG 871 ==
LOC: FER 04:42 → FTCU 07:55
PROVIDERS: Emergency Medicine; ADMIT Internal Medicine
DX: A41.9 Sepsis, unspecified organism (principal); G93.41 Metabolic encephalopathy; L03.115 Cellulitis of right lower limb; L03.116 Cellulitis of left lower limb; J96.11 Chronic respiratory failure with hypoxia; I50.32 Chronic diastolic (congestive) heart failure; Z68.41 Body mass index [BMI] 40.0-44.9, adult; I87.8 Other specified disorders of veins; Z20.822 Contact with and (suspected) exposure to COVID-19; J44.9 Chronic obstructive pulmonary disease, unspecified; I10 Essential (primary) hypertension; G89.4 Chronic pain syndrome; G25.81 Restless legs syndrome; E66.01 Morbid (severe) obesity due to excess calories; Z99.81 Dependence on supplemental oxygen; Z98.51 Tubal ligation status; Z80.42 Family history of malignant neoplasm of prostate; Z83.3 Family history of diabetes mellitus; Z87.891 Personal history of nicotine dependence; Z88.8 Allergy status to other drugs, medicaments and biological substances; Z79.899 Other long term (current) drug therapy
CPT/HCPCS: 36415; 36600; 70450; 71045; 80048; 80053; 81003; 82803; 83605; 83880; 84484; 85025; 87040; 93005; 94640; J1650; J2543; J2930; J3370; J7030; J7040; J7050; U0002

== ENCOUNTER 2021-04-19 10:36 | Inpatient (IN) | payer OTHER ==
[~2021-04-19] VITALS: Ht 162.6 cm; Wt 115.0 kg
[2021-04-19 11:37] LABS: LACTIC ACID 1.1 mmol/L (0.4-1.9)
[2021-04-19 11:43] LABS: ALBUMIN 2.9 g/dL (3.4-5.0); BASOPHIL 0.2 % (0-2); BILIRUBIN - TOTAL 0.3 mg/dL (0.2-1.0); BUN/CREAT RATIO (CALC) 26.9 RATIO; CREATININE 0.52 mg/dL (0.51-0.95); EOSINOPHIL 3.5 % (0-5); GLOBULIN (CALCULATION) 4.9 g/dL; HCT 34.9 % (37.0-47.0); HGB 9.6 g/dl (12.5-16.0); LYMPHOCYTE 11.5 % (15-48); MCH 27.7 pg (25.0-31.0); MCHC 27.5 g/dL (32.0-36.0); MONOCYTE 9.4 % (0-12); MPV 8.8 fL (6.0-9.5); NEUTROPHIL 74.7 % (41-80); NRBC 0; PLT 455 K/uL (150-400); POTASSIUM 4.6 mmol/L (3.5-5.1); RBC 3.47 M/uL (4.20-5.40); RDW 14.6 % (11.5-14.0); TOTAL PROTEIN 7.8 g/dL (6.4-8.2); WBC 8.8 K/uL (4.0-10.5)
[2021-04-19 11:47] LABS: MCV 100.6 fL (78.0-100.0)
[2021-04-19 13:19] LABS: CORONAVIRUS 2019 SARS-COV-2 NEGATIVE (NEGATIVE); INFLUENZA A NAA NEGATIVE (NEGATIVE)
[2021-04-20 04:05] LABS: BASOPHIL 0.1 % (0-2); EOSINOPHIL 0 % (0-5); HCT 30.6 % (37.0-47.0); HGB 8.7 g/dl (12.5-16.0); LYMPHOCYTE 10.3 % (15-48); MCHC 28.4 g/dL (32.0-36.0); MONOCYTE 7.2 % (0-12); MPV 8.7 fL (6.0-9.5); NEUTROPHIL 81.7 % (41-80); NRBC 0; PLT 421 K/uL (150-400); RBC 3.22 M/uL (4.20-5.40); RDW 14.5 % (11.5-14.0); WBC 7.1 K/uL (4.0-10.5)
[2021-04-20 04:21] LABS: ALBUMIN 2.6 g/dL (3.4-5.0); BILIRUBIN - TOTAL 0.3 mg/dL (0.2-1.0); BUN/CREAT RATIO (CALC) 23.5 RATIO; C-REACTIVE PROTEIN 13.6 mg/dL (<=0.90); CREATININE 0.51 mg/dL (0.51-0.95); GLOBULIN (CALCULATION) 3.9 g/dL; PHOSPHORUS 2.3 mg/dL (2.6-4.7); POTASSIUM 4.3 mmol/L (3.5-5.1); TOTAL PROTEIN 6.5 g/dL (6.4-8.2)
[2021-04-20 09:33] LABS: RETICULOCYTE COUNT 2.1 % (1.0-2.0)
[2021-04-20 10:05] LABS: IRON % SATURATION 11.3 %SAT (20-50)
[2021-04-20 10:31] LABS: FOLIC ACID (SERUM) 17.9 ng/mL (8.6-58.9)
[2021-04-21 05:55] LABS: BASOPHIL 0.3 % (0-2); EOSINOPHIL 0.7 % (0-5); HCT 31.2 % (37.0-47.0); HGB 9.1 g/dl (12.5-16.0); MCH 27.3 pg (25.0-31.0); MCHC 29.2 g/dL (32.0-36.0); MCV 93.7 fL (78.0-100.0); MONOCYTE 12.1 % (0-12); MPV 8.7 fL (6.0-9.5); NEUTROPHIL 63.2 % (41-80); NRBC 0; PLT 455 K/uL (150-400); RBC 3.33 M/uL (4.20-5.40); RDW 15.3 % (11.5-14.0); WBC 6.1 K/uL (4.0-10.5)
[2021-04-21 06:12] LABS: BUN/CREAT RATIO (CALC) 15.9 RATIO; C-REACTIVE PROTEIN 6.7 mg/dL (<=0.90); CREATININE 0.82 mg/dL (0.51-0.95); MAGNESIUM 1.9 mg/dL (1.8-2.4); POTASSIUM 3.6 mmol/L (3.5-5.1)
[2021-04-21 20:23] LABS: BILIRUBIN NEGATIVE (NEGATIVE); BLOOD NEGATIVE Ery/uL (NEGATIVE); CLARITY CLEAR (CLEAR); COLOR YELLOW (YELLOW); GLUCOSE (U) NORMAL (NORMAL); LEUKOCYTES NEGATIVE Leu/uL (NEGATIVE); NITRITE NEGATIVE (NEGATIVE); PROTEIN NEGATIVE (NEGATIVE); UROBILINOGEN 0.2 mg/dL (0.2-1.0); pH 5.5 (5.0-9.0)
[2021-04-21 20:29] LABS: BACTERIA TRACE
[2021-04-22 06:11] LABS: BASOPHIL 0.4 % (0-2); EOSINOPHIL 2.1 % (0-5); HCT 31.4 % (37.0-47.0); LYMPHOCYTE 16.8 % (15-48); MCH 27.4 pg (25.0-31.0); MCHC 28.7 g/dL (32.0-36.0); MCV 95.7 fL (78.0-100.0); MONOCYTE 10.9 % (0-12); MPV 8.8 fL (6.0-9.5); NEUTROPHIL 69.2 % (41-80); NRBC 0; PLT 486 K/uL (150-400); RBC 3.28 M/uL (4.20-5.40); RDW 15.8 % (11.5-14.0); WBC 7.2 K/uL (4.0-10.5)
[2021-04-22 06:23] LABS: BUN/CREAT RATIO (CALC) 10.1 RATIO; CREATININE 2.08 mg/dL (0.51-0.95)
[2021-04-23 07:05] LABS: BASOPHIL 0.2 % (0-2); EOSINOPHIL 1.8 % (0-5); HGB 9.5 g/dl (12.5-16.0); LYMPHOCYTE 8.9 % (15-48); MCHC 28.8 g/dL (32.0-36.0); MCV 97.3 fL (78.0-100.0); MONOCYTE 8.5 % (0-12); MPV 8.4 fL (6.0-9.5); NEUTROPHIL 80.3 % (41-80); NRBC 0; PLT 427 K/uL (150-400); RBC 3.39 M/uL (4.20-5.40); RDW 15.9 % (11.5-14.0); WBC 11.5 K/uL (4.0-10.5)
[2021-04-23 07:29] LABS: BUN/CREAT RATIO (CALC) 9.1 RATIO; CREATININE 3.08 mg/dL (0.51-0.95)
[2021-04-23 07:42] LABS: POTASSIUM 5.8 mmol/L (3.5-5.1)
[2021-04-23 20:44] LABS: BUN/CREAT RATIO (CALC) 9.9 RATIO; CREATININE 3.24 mg/dL (0.51-0.95)
[2021-04-23 20:47] LABS: POTASSIUM 3.8 mmol/L (3.5-5.1)
[2021-04-24 06:00] LABS: BASOPHIL 0.2 % (0-2); HCT 30.1 % (37.0-47.0); HGB 8.7 g/dl (12.5-16.0); MCH 27.7 pg (25.0-31.0); MCHC 28.9 g/dL (32.0-36.0); MCV 95.9 fL (78.0-100.0); MONOCYTE 8.6 % (0-12); MPV 8.7 fL (6.0-9.5); NEUTROPHIL 81.8 % (41-80); NRBC 0; PLT 400 K/uL (150-400); RBC 3.14 M/uL (4.20-5.40); RDW 16.1 % (11.5-14.0); WBC 10.7 K/uL (4.0-10.5)
[2021-04-24 06:12] LABS: BUN/CREAT RATIO (CALC) 9.1 RATIO; C-REACTIVE PROTEIN 9.3 mg/dL (<=0.90); CREATININE 3.28 mg/dL (0.51-0.95); MAGNESIUM 2.1 mg/dL (1.8-2.4); POTASSIUM 4.4 mmol/L (3.5-5.1)
[2021-04-24 14:10] LABS: BILIRUBIN NEGATIVE (NEGATIVE); BLOOD NEGATIVE Ery/uL (NEGATIVE); CLARITY HAZY (CLEAR); COLOR YELLOW (YELLOW); GLUCOSE (U) NORMAL (NORMAL); LEUKOCYTES NEGATIVE Leu/uL (NEGATIVE); NITRITE NEGATIVE (NEGATIVE); PROTEIN TRACE (LOW) mg/dL (NEGATIVE); SPECIFIC GRAVITY 1.025 (1.001-1.030); UROBILINOGEN 0.2 mg/dL (0.2-1.0); pH 5.5 (5.0-9.0)
[2021-04-24 14:17] LABS: BACTERIA 1+; URINARY RBC RARE; YEAST PRESENT
[2021-04-24 14:24] LABS: URINE CREATININE 182.92 mg/dL (29.00-226.00)
[2021-04-25 06:05] LABS: BASOPHIL 0.3 % (0-2); EOSINOPHIL 1.7 % (0-5); HCT 33.3 % (37.0-47.0); HGB 9.4 g/dl (12.5-16.0); LYMPHOCYTE 13.1 % (15-48); MCH 27.3 pg (25.0-31.0); MCHC 28.2 g/dL (32.0-36.0); MCV 96.8 fL (78.0-100.0); MONOCYTE 9.4 % (0-12); MPV 8.7 fL (6.0-9.5); NEUTROPHIL 75.1 % (41-80); NRBC 0; PLT 427 K/uL (150-400); RBC 3.44 M/uL (4.20-5.40); RDW 16.4 % (11.5-14.0)
[2021-04-25 06:23] LABS: BILIRUBIN - TOTAL 0.3 mg/dL (0.2-1.0); BUN/CREAT RATIO (CALC) 10.2 RATIO; CREATININE 3.05 mg/dL (0.51-0.95); GLOBULIN (CALCULATION) 4.9 g/dL; TOTAL PROTEIN 7.9 g/dL (6.4-8.2)
[2021-04-26 06:52] LABS: BASOPHIL 0.1 % (0-2); EOSINOPHIL 2.2 % (0-5); HCT 32.2 % (37.0-47.0); LYMPHOCYTE 8.4 % (15-48); MCH 27.9 pg (25.0-31.0); MCV 99.7 fL (78.0-100.0); MONOCYTE 9.6 % (0-12); MPV 8.7 fL (6.0-9.5); NEUTROPHIL 79.3 % (41-80); NRBC 0; PLT 349 K/uL (150-400); RBC 3.23 M/uL (4.20-5.40); RDW 16.3 % (11.5-14.0)
[2021-04-26 07:10] LABS: ALBUMIN 2.9 g/dL (3.4-5.0); BILIRUBIN - TOTAL 0.2 mg/dL (0.2-1.0); BUN/CREAT RATIO (CALC) 11.5 RATIO; CREATININE 2.86 mg/dL (0.51-0.95); GLOBULIN (CALCULATION) 4.8 g/dL; POTASSIUM 4.2 mmol/L (3.5-5.1); TOTAL PROTEIN 7.7 g/dL (6.4-8.2)
[2021-04-27 04:55] LABS: BASOPHIL 0.1 % (0-2); EOSINOPHIL 1.4 % (0-5); HCT 32.5 % (37.0-47.0); LYMPHOCYTE 7.5 % (15-48); MCH 27.9 pg (25.0-31.0); MCHC 27.7 g/dL (32.0-36.0); MCV 100.6 fL (78.0-100.0); MONOCYTE 9.3 % (0-12); MPV 8.8 fL (6.0-9.5); NEUTROPHIL 81.2 % (41-80); NRBC 0; PLT 387 K/uL (150-400); RBC 3.23 M/uL (4.20-5.40); RDW 16.1 % (11.5-14.0); WBC 10.2 K/uL (4.0-10.5)
[2021-04-27 06:14] LABS: ALBUMIN 2.9 g/dL (3.4-5.0); BILIRUBIN - TOTAL 0.4 mg/dL (0.2-1.0); BUN/CREAT RATIO (CALC) 12.1 RATIO; CREATININE 2.72 mg/dL (0.51-0.95); GLOBULIN (CALCULATION) 4.9 g/dL; POTASSIUM 4.4 mmol/L (3.5-5.1); TOTAL PROTEIN 7.8 g/dL (6.4-8.2)
[2021-04-27 11:20] LABS: INR 1.18 (0.9-1.2); PROTHROMBIN TIME 14.4 SECONDS (11.8-13.4)
[2021-04-27 11:59] LABS: C-REACTIVE PROTEIN > 18.00 mg/dL (<=0.90); MAGNESIUM 2.4 mg/dL (1.8-2.4); PHOSPHORUS 5.8 mg/dL (2.6-4.7)
[2021-04-27 12:37] LABS: BILIRUBIN NEGATIVE (NEGATIVE); BLOOD TRACE-INTACT Ery/uL (NEGATIVE); CLARITY CLEAR (CLEAR); COLOR YELLOW (YELLOW); GLUCOSE (U) NORMAL (NORMAL); LEUKOCYTES NEGATIVE Leu/uL (NEGATIVE); NITRITE NEGATIVE (NEGATIVE); PROTEIN NEGATIVE (NEGATIVE); SPECIFIC GRAVITY 1.015 (1.001-1.030); UROBILINOGEN 0.2 mg/dL (0.2-1.0); pH 5.5 (5.0-9.0)
[2021-04-27 12:55] LABS: BACTERIA TRACE; SQUAMOUS EPITHELIAL CELLS RARE; URINARY RBC RARE
[2021-04-28 04:43] LABS: BASOPHIL 0.3 % (0-2); EOSINOPHIL 2.2 % (0-5); HGB 8.8 g/dl (12.5-16.0); LYMPHOCYTE 10.5 % (15-48); MCH 27.8 pg (25.0-31.0); MCHC 28.4 g/dL (32.0-36.0); MCV 97.8 fL (78.0-100.0); MONOCYTE 11.5 % (0-12); MPV 8.9 fL (6.0-9.5); NEUTROPHIL 74.9 % (41-80); NRBC 0; PLT 339 K/uL (150-400); RBC 3.17 M/uL (4.20-5.40); RDW 16.4 % (11.5-14.0); WBC 7.8 K/uL (4.0-10.5)
[2021-04-28 05:44] LABS: ALBUMIN 2.7 g/dL (3.4-5.0); BILIRUBIN - TOTAL 0.3 mg/dL (0.2-1.0); BUN/CREAT RATIO (CALC) 12.8 RATIO; CREATININE 2.66 mg/dL (0.51-0.95); POTASSIUM 4.3 mmol/L (3.5-5.1); TOTAL PROTEIN 7.7 g/dL (6.4-8.2)
[2021-04-29 07:24] LABS: BASOPHIL 0.1 % (0-2); HCT 31.2 % (37.0-47.0); HGB 9.1 g/dl (12.5-16.0); LYMPHOCYTE 11.6 % (15-48); MCH 27.9 pg (25.0-31.0); MCHC 29.2 g/dL (32.0-36.0); MCV 95.7 fL (78.0-100.0); MONOCYTE 13.4 % (0-12); MPV 9.1 fL (6.0-9.5); NEUTROPHIL 73.4 % (41-80); NRBC 0; PLT 386 K/uL (150-400); RBC 3.26 M/uL (4.20-5.40); RDW 16.1 % (11.5-14.0); WBC 7.8 K/uL (4.0-10.5)
[2021-04-29 07:29] LABS: ALBUMIN 2.7 g/dL (3.4-5.0); ALKALINE PHOSHATASE 84 U/L (46-116); ALT <6 U/L (14-59); AST 13 U/L (15-37); BILIRUBIN - TOTAL 0.3 mg/dL (0.2-1.0); BUN 29 mg/dL (7-18); BUN/CREAT RATIO (CALC) 13.2 RATIO; CHLORIDE 104 mmol/L (98-107); CO2 (BICARBONATE) 32 mmol/L (21-32); GLOBULIN (CALCULATION) 5.3 g/dL; GLUCOSE 108 mg/dL (74-106); POTASSIUM 4.3 mmol/L (3.5-5.1)
[2021-04-29] MEDS ORDERED: TOPROL XL100 MG PO (09:36)
[2021-04-29] MEDS ORDERED: MIRAPEX0.25 MG PO (09:36)
[2021-04-29] MEDS ORDERED: OXYCODONE-ACET1 EAC1 PO (09:52)
== END 2021-04-29 10:56 | disposition home health service (06) | DRG 871 ==
LOC: FER 10:36 → FMS 15:53 → FTCU 04-27 11:20
PROVIDERS: Family Medicine; Internal Medicine; Internal Medicine Nephrology; Nurse Practitioner; ADMIT Internal Medicine
PROC: 05HY33Z Insertion of Infusion Device into Upper Vein, Percutaneous Approach (ICD-10-PCS; principal; 2021-04-22)
DX: A41.9 Sepsis, unspecified organism (principal); J96.21 Acute and chronic respiratory failure with hypoxia; J96.22 Acute and chronic respiratory failure with hypercapnia; N17.0 Acute kidney failure with tubular necrosis; G92.8 Other toxic encephalopathy; L03.115 Cellulitis of right lower limb; I50.32 Chronic diastolic (congestive) heart failure; N30.00 Acute cystitis without hematuria; L03.116 Cellulitis of left lower limb; E66.2 Morbid (severe) obesity with alveolar hypoventilation; E87.2 Acidosis; Z68.41 Body mass index [BMI] 40.0-44.9, adult; Z20.822 Contact with and (suspected) exposure to COVID-19; I83.12 Varicose veins of left lower extremity with inflammation; I83.11 Varicose veins of right lower extremity with inflammation; I11.0 Hypertensive heart disease with heart failure; G89.4 Chronic pain syndrome; J45.909 Unspecified asthma, uncomplicated; G25.81 Restless legs syndrome; D50.9 Iron deficiency anemia, unspecified; D51.3 Other dietary vitamin B12 deficiency anemia; I89.0 Lymphedema, not elsewhere classified; G25.3 Myoclonus; T36.8X5A Adverse effect of other systemic antibiotics, initial encounter; T36.0X5A Adverse effect of penicillins, initial encounter; Z80.42 Family history of malignant neoplasm of prostate; Z83.3 Family history of diabetes mellitus; Z87.891 Personal history of nicotine dependence; Z98.51 Tubal ligation status; Z79.891 Long term (current) use of opiate analgesic; Z79.899 Other long term (current) drug therapy
CPT/HCPCS: 36415; 36600; 71045; 80048; 80053; 80202; 81001; 82140; 82150; 82570; 82607; 82746; 82803; 83540; 83550; 83605; 83735; 83880; 84100; 84145; 84300; 84484; 85025; 85610; 86140; 87040; 87088; 94010; 94640; 94660; 94664; 94762; C1751; J0690; J1100; J1644; J1650; J1940; J2270; J2543; J2916; J3010; J3360; J3370; J3420; J7030; J7040; J7050; U0002